=== PATIENT | female | born 1960 | race African-American/Black ===

== ENCOUNTER 2023-05-12 20:30 | Emergency (ER) | payer MEDICAID, OTHER ==
[~2023-05-12] VITALS: Ht 160 cm; Wt 80.0 kg
[2023-05-12 20:35] VITALS: O2SAT 99
[2023-05-12 21:03] LABS: BASOPHILS % 0.3 % (0.0-2.0); HEMATOCRIT. 43.7 % (36.0-48.0); HEMOGLOBIN. 14.4 g/dL (12.0-16.0); LYMPHOCYTES % 26.8 % (20.0-50.0); MEAN CORPUSCULAR HEMOGLOBIN 28.4 pg (28.0-32.0); MEAN CORPUSCULAR VOLUME 86.5 fL (81.0-99.0); MEAN PLATELET VOLUME 7.2 fl (7.4-10.4); MONOCYTES % 9.2 % (2.0-8.0); NEUTROPHILS % 62.7 % (40.0-76.0); PLATELET 303 x1000/uL (130-400); RED BLOOD CELL COUNT 5.05 mill/uL (4.2-5.4); RED CELL DISTRIBUTION WIDTH 13.8 % (11.6-14.6)
[2023-05-12 21:12] LABS: CHLORIDE 109 mEq/L (98-107)
[2023-05-12 21:14] LABS: PARTIAL THROMBOPLASTIN TIME 32.3 sec (23.4-31.0); PROTHROMBIN TIME 10.7 sec (9.6-11.0)
[2023-05-12 21:15] LABS: HCG SCREEN NEGATIVE
[2023-05-12] MEDS ORDERED: METHOCARBAMOL 500MG TABLET PO ONE (22:30)
[2023-05-12] MEDS ORDERED: ACETAMINOPHEN 325MG TABLET PO ONE (22:30)
[2023-05-12 23:24] LABS: CLARITY URINE CLOUDY (CLEAR); COLOR URINE YELLOW (YELLOW); KETONES URINE NEGATIVE (NEGATIVE); LEUKOCYTE ESTERASE URINE 1+ (NEGATIVE); NITRITE URINE NEGATIVE (NEGATIVE); OCCULT BLOOD URINE NEGATIVE (NEGATIVE); PROTEIN URINE NEGATIVE (NEGATIVE); SPECIFIC GRAVITY URINE 1.013 (1.005-1.030)
[2023-05-13] MEDS ORDERED: IBUP-2029 MT (00:51)
[2023-05-13] MEDS ORDERED: METH-653 MT (00:51)
[2023-05-13 01:43] VITALS: BP 148/68; PULSE 84; RESP 20; TEMP 98.1
== END 2023-05-13 01:48 | disposition left against medical advice (07) ==
LOC: ER 20:30 → CANBEDREQ 05-15 20:36
DX: R51.9 Headache, unspecified (principal); E11.9 Type 2 diabetes mellitus without complications; I10 Essential (primary) hypertension
CPT/HCPCS: 36415; 71045; 80053; 81003; 84484; 84703; 85025; 93005; 99285